=== PATIENT | female | born 1975 | race Caucasian/White ===

== ENCOUNTER → 2023-10-18 | Outpatient (CLI) | payer BC ==
[2023-10-18 13:56] LABS: ALBUMIN 4.4 g/dL (3.5-5.0)
[2023-10-18 13:58] LABS: CALCIUM 9.6 mg/dL (8.3-10.5)
[2023-10-18 13:59] LABS: TOTAL PROTEIN 7.3 g/dL (6.4-8.3)
[2023-10-18 14:01] LABS: TOTAL BILIRUBIN 0.4 mg/dL (0.2-1.2)
== END ==
LOC: LAB 13:17
PROVIDERS: Family Medicine
DX: I10 Essential (primary) hypertension (principal)

== ENCOUNTER → 2023-11-02 | Outpatient (CLI) | payer BC ==
[2023-11-02 16:45] LABS: ALBUMIN 4.4 g/dL (3.5-5.0)
[2023-11-02 16:47] LABS: CALCIUM 9.5 mg/dL (8.3-10.5)
[2023-11-02 16:48] LABS: TOTAL PROTEIN 7.2 g/dL (6.4-8.3)
[2023-11-02 16:50] LABS: TOTAL BILIRUBIN 0.3 mg/dL (0.2-1.2)
== END ==
LOC: LAB 16:28
PROVIDERS: Family Medicine
DX: I10 Essential (primary) hypertension (principal)